=== PATIENT | female | born 1945 | race Caucasian/White ===

== ENCOUNTER 2022-03-05 13:54 | Emergency (ER) | payer OTHER, MEDICAID ==
[~2022-03-05] VITALS: Ht 157.5 cm; Wt 48.5 kg
--- NOTE | 2022-03-05 14:00 | NUR ---
PT TAKEN TO BED 12 VIA [facility]
[2022-03-05 14:05] VITALS: BP 150/79
--- NOTE | 2022-03-05 14:16 | NUR ---
77Y/O FEMALE BIBA FROM [facility]. PER EMS STAFF CALLED 911 STATING PATIENT HAD TWO EPISODES OF VOMITING THIS MORNING, LOOSE YELLOWISH COLORED, DENIES RECENT COLD SYMPTOMS, FEVERS. PATIENT AOX1 AT BASELINE. DENIES ANY DIARRHEA, PT IS INCONTINENT, UNABLE TO AMBULATE PMH: DEMENTIA, HTN, COPD NKA
[2022-03-05] MEDS ORDERED: NACL 0.9% 1,000 ML IV ONE (15:35)
--- NOTE | 2022-03-05 15:40 | NUR ---
RAD AT BEDSIDE
--- NOTE | 2022-03-05 15:55 | NUR ---
LAB AT BEDSIDE
[2022-03-05 16:18] LABS: BASOPHILS # (AUTO) 0.1 K/uL (0.00-0.22); BASOPHILS % (AUTO) 0.5 % (0.0-2.0); EOSINOPHILS # (AUTO) 0.2 K/uL (0-0.4); EOSINOPHILS % (AUTO) 1.1 % (0.0-4.0); HEMATOCRIT 40.5 % (36-48); HEMOGLOBIN 13.1 g/dL (12.0-16.0); LYMPHOCYTES # (AUTO) 1.6 K/uL (2.5-16.5); LYMPHOCYTES % (AUTO) 11.9 % (20.5-51.1); MEAN CORPUSCULAR HEMOGLOBIN 30 pg (27-31); MEAN CORPUSCULAR HGB CONC 32 g/dL (33-37); MEAN CORPUSCULAR VOLUME 93.2 fL (80-94); MONOCYTES # (AUTO) 0.8 K/uL (0.8-1.0); MONOCYTES % (AUTO) 5.7 % (1.7-9.3); NEUTROPHILS # (AUTO) 11.2 K/uL (1.8-7.7); NEUTROPHILS % (AUTO) 80.8 % (42.2-75.2); PLATELET COUNT (AUTO) 263 K/uL (140-450); RED BLOOD CELL COUNT(AUTO) 4.35 MIL/uL (4.20-5.40); RED CELL DISTRIBUTION WIDTH 12.5 % (11.6-13.7); WHITE BLOOD COUNT (AUTO) 13.8 K/uL (4.8-10.8)
--- NOTE | 2022-03-05 16:18 | NUR ---
NOTED PT DESAT AT 88%, PT VERBALLY RESPONSIVE, PLACED ON O2 2LPM NC
[2022-03-05 16:32] LABS: ALBUMIN 3.3 g/dL (3.4-5.0); ANION GAP 12.1 (8-16); ASPARTATE AMINOTRANSFERASE 29 U/L (15-37); CHLORIDE 102 mmol/L (98-107); CREATININE 0.4 mg/dL (0.6-1.3); GLUCOSE 100 mg/dL (74-106); LIPASE 128 U/L (73-393); POTASSIUM 4.1 mmol/L (3.5-5.1); SODIUM SERUM 140 mmol/L (136-145); TOTAL BILIRUBIN 0.3 mg/dL (0.0-1.0); UREA NITROGEN, BLOOD 12 mg/dL (7-18)
--- NOTE | 2022-03-05 17:26 | NUR ---
PT TURNED TO RIGHT SIDE
[2022-03-05] MEDS ORDERED: ONDA-188 SL (19:15)
--- NOTE | 2022-03-05 19:23 | NUR ---
Pt report given to SINA BENNETT. Transfer of care at this time.
--- NOTE | 2022-03-05 19:38 | NUR ---
BROTHER OF PATIENT CALLED AND CONCERNED ABOUT PATIENT CONDITION. FAMILY WAS TOLD PT IS BEING SENT HOME SOON TRANSPORTATION IS COORDINATED.
--- NOTE | 2022-03-06 04:09 | NUR ---
Patient appears to be resting comfortably in bed. Vital Signs within normal limits. Respirations even and unlabored. PT GIVEN BLANKET FOR COMFORT.
--- NOTE | 2022-03-06 07:31 | NUR ---
Pt report given to DONALD CAMERON. Transfer of care at this time.
--- NOTE | 2022-03-06 07:32 | NUR ---
REPORT RECEIVED FROM NISHA BENNETT. ASSUMED CARE AT THIS TIME
--- NOTE | 2022-03-06 08:11 | NUR ---
ATTEMPED X2 TO CALL POA. PHONE # NOT WORKING
--- NOTE | 2022-03-06 08:52 | NUR ---
SPOKE W/ PT POA . FAMILY UNABLE TO TRANSPORT HOME
--- NOTE | 2022-03-06 10:38 | NUR ---
Sharad tafoyadebra in ED - 03/06/22 at 1043 by DILIP REPORT RECIEVED FROM ITALIA CRAIG, TRANSFER OF CARE AT THIS TIME, PT IS AWAKE, VERBALLY RESPONSIVE, ON O2 2LPM, TURNED AND REPOSITIONED
--- NOTE | 2022-03-06 11:02 | NUR ---
SPOKE W/ ADMINISTER AT [facility] KARTHIK . KARTHIK UPDATED AND MADE AWARE OF PT TRANSPORT ETA 6PM.
--- NOTE | 2022-03-06 11:24 | NUR ---
SPOKE W/ [facility]ARTHIK TAVERAS. PT TRANSPORT ARRANGED AND COMIRMED BY PT FACILITY @ 2PM THROUGH [facility].
--- NOTE | 2022-03-06 12:00 | NUR ---
PT SOILED BRIEF CHANGED. PT REPOSITIONED AND SITTING UP IN BED.
--- NOTE | 2022-03-06 12:01 | NUR ---
PT PROVIDED W/ LUNCH , LEFT AT BEDSIDE. PT REFUSED "NOT RIGHT NOW".
[2022-03-06 14:25] VITALS: BP 131/56
--- NOTE | 2022-03-06 14:39 | NUR ---
Patient discharged with v/s stable. Written and verbal after care instructions FOR VOMITING AND DEHYRDRATION given and explained. Patient alert, oriented and verbalized understanding of instructions. [facility] Transport with to senior living. All questions addressed prior to discharge. ID band removed. Patient advised to follow up with PMD. Rx of ZOFRAN given. Opportunity to ask questions provided and answered. PT D/C PACKET SENT WITH PT.
== END 2022-03-06 14:39 ==
LOC: MED 13:54
DX: E86.0 Dehydration (principal); R19.7 Diarrhea, unspecified; R11.10 Vomiting, unspecified
CPT/HCPCS: 36415; 71045; 74018; 80053; 83605; 83690; 84484; 85025; 93005; 96360; 99284; Q0092; J7030